=== PATIENT | male | born 1955 | race Caucasian/White ===

== ENCOUNTER → 2017-01-18 | Outpatient (CLI) | payer OTHER ==
[2017-01-18 08:53] LABS: microscopic required? NO
[2017-01-18 09:09] LABS: UA SPECIFIC GRAVITY 1.015 (1.005-1.035); urine erythrocyte NEGATIVE (NEGATIVE)
[2017-01-18 09:11] LABS: BASOPHIL % 0.6 % (0-2); PLATELET COUNT 259 x10^3mcL (130-400); RED CELL DISTRIBUTION WIDTH 14.5 % (11.5-14.5)
[2017-01-18 09:37] LABS: T3 TOTAL 1.29 ng/mL
[2017-01-18 09:39] LABS: FREE T4 0.83 ng/dL (0.76-1.46); FREE THYROXINE INDEX 2.5 ug/dL (1.4-4.5)
[2017-01-18 09:51] LABS: ALBUMIN 3.5 g/dL (3.4-5.0); ALKALINE PHOSPHATASE 86 U/L (46-116); ALT/SGPT 76 U/L (16-63); AST/SGOT 36 U/L (15-37); BILIRUBIN DIRECT 0.14 mg/dL (0.0-0.2); BILIRUBIN TOTAL 0.4 mg/dL (0.20-1.00); CALCIUM 8.7 mg/dL (8.5-10.1); CARBON DIOXIDE 27.2 mmol/L (21-32); CHLORIDE SERUM 106 mmol/L (98-107); CHOLESTEROL 149 mg/dL (<200); CREATININE SERUM 1.2 mg/dL (0.7-1.3); GFR1 > 60 mL/min; GLUCOSE SERUM 113 mg/dL (74-106); POTASSIUM SERUM 3.6 mmol/L (3.5-5.1); SODIUM SERUM 144 mmol/L (136-145); TOTAL PROTEIN, SERUM 6.9 g/dL (6.4-8.2)
[2017-01-19 09:18] LABS: ESTRADIOL 8.5 pg/mL (7.6-42.6)
== END | disposition home or self-care (01) ==
LOC: LB 08:36
PROVIDERS: Family Medicine
DX: E88.9 Metabolic disorder, unspecified (principal); N46.01 Organic azoospermia; Z11.3 Encounter for screening for infections with a predominantly sexual mode of transmission
CPT/HCPCS: 82670; 84153; 84305; 84402; 84403; 84439

== ENCOUNTER → 2017-04-11 | Outpatient (CLI) | payer OTHER ==
[2017-04-11 09:46] LABS: microscopic required? NO
[2017-04-11 10:23] LABS: UA SPECIFIC GRAVITY 1.015 (1.005-1.035); urine erythrocyte NEGATIVE (NEGATIVE)
[2017-04-11 10:50] LABS: ALBUMIN 3.7 g/dL (3.4-5.0); ALKALINE PHOSPHATASE 80 U/L (46-116); ALT/SGPT 49 U/L (16-63); AST/SGOT 28 U/L (15-37); BILIRUBIN TOTAL 0.3 mg/dL (0.20-1.00); CALCIUM 8.8 mg/dL (8.5-10.1); CARBON DIOXIDE 28.9 mmol/L (21-32); CHLORIDE SERUM 106 mmol/L (98-107); CHOLESTEROL 147 mg/dL (<200); CHOLESTEROL/HDL RATIO 2.5; CREATININE SERUM 1.2 mg/dL (0.7-1.3); GFR1 > 60 mL/min; GLUCOSE SERUM 101 mg/dL (74-106); HDL CHOLESTEROL 60 mg/dL (40-60); POTASSIUM SERUM 3.6 mmol/L (3.5-5.1); SODIUM SERUM 139 mmol/L (136-145); TOTAL PROTEIN, SERUM 7.4 g/dL (6.4-8.2)
[2017-04-11 10:52] LABS: T3 TOTAL 1.21 ng/mL
[2017-04-11 10:56] LABS: FREE T4 0.96 ng/dL (0.76-1.46); FREE THYROXINE INDEX 3.1 ug/dL (1.4-4.5)
[2017-04-11 11:02] LABS: TRIGLYCERIDES 232 mg/dL (<150)
[2017-04-11 11:09] LABS: BASOPHIL % 0.7 % (0-2); PLATELET COUNT 273 x10^3mcL (130-400); RED CELL DISTRIBUTION WIDTH 12.2 % (11.5-14.5)
[2017-04-13 12:54] LABS: ESTRADIOL 8.7 pg/mL (7.6-42.6)
[2017-04-14 14:35] LABS: INSULIN-LIKE GROWTH FACTOR-1 128 ng/mL (49-188)
== END | disposition home or self-care (01) ==
LOC: LB 09:21
PROVIDERS: Family Medicine
DX: E88.9 Metabolic disorder, unspecified (principal); N46.01 Organic azoospermia; Z11.3 Encounter for screening for infections with a predominantly sexual mode of transmission
CPT/HCPCS: 82670; 84153; 84305; 84402; 84403; 84439

== ENCOUNTER 2017-05-14 17:20 | Emergency (ER) | payer OTHER ==
[~2017-05-14] VITALS: Ht 175.3 cm; Wt 97.1 kg
[2017-05-14 17:50] LABS: BASOPHIL % 0.4 % (0-2); PLATELET COUNT 286 x10^3mcL (130-400); RED CELL DISTRIBUTION WIDTH 12.1 % (11.5-14.5)
[2017-05-14 17:55] LABS: CALCIUM 9.1 mg/dL (8.5-10.1); CARBON DIOXIDE 29.1 mmol/L (21-32); CHLORIDE SERUM 104 mmol/L (98-107); CREATININE SERUM 1.2 mg/dL (0.7-1.3); GFR1 > 60 mL/min; GLUCOSE SERUM 89 mg/dL (74-106); POTASSIUM SERUM 3.6 mmol/L (3.5-5.1); SODIUM SERUM 140 mmol/L (136-145)
[2017-05-14 17:59] LABS: ALBUMIN 3.9 g/dL (3.4-5.0); ALKALINE PHOSPHATASE 69 U/L (46-116); ALT/SGPT 30 U/L (16-63); AST/SGOT 18 U/L (15-37); BILIRUBIN TOTAL 0.4 mg/dL (0.20-1.00); CHOLESTEROL 131 mg/dL (<200); HDL CHOLESTEROL 49 mg/dL (40-60); PHOSPHOROUS 4.2 mg/dL (2.5-4.9); TOTAL PROTEIN, SERUM 7.5 g/dL (6.4-8.2); URIC ACID 6.8 mg/dL (3.5-7.2)
[2017-05-14 18:38] VITALS: BP 148/91
== END 2017-05-14 18:38 | disposition home or self-care (01) ==
LOC: ED 17:20
PROVIDERS: Emergency Medicine
DX: R07.89 Other chest pain (principal); I10 Essential (primary) hypertension; Z79.899 Other long term (current) drug therapy; Z91.013 Allergy to seafood
CPT/HCPCS: 36415; 83880; Q0092

== ENCOUNTER → 2017-06-03 | Outpatient (CLI) | payer OTHER ==
[2017-06-06 07:49] LABS: ALBUMIN 3.6 g/dL (3.4-5.0); ALKALINE PHOSPHATASE 50 U/L (46-116); ALT/SGPT 38 U/L (16-63); AST/SGOT 35 U/L (15-37); BASOPHIL % 0.4 % (0-2); BILIRUBIN TOTAL 0.54 mg/dL (0.20-1.00); CALCIUM 9.2 mg/dL (8.5-10.1); CARBON DIOXIDE 28.5 mmol/L (21-32); CHLORIDE SERUM 102 mmol/L (98-107); CREATININE SERUM 1.1 mg/dL (0.7-1.3); GFR1 > 60 mL/min; GLUCOSE SERUM 103 mg/dL (74-106); PLATELET COUNT 226 x10^3mcL (130-400); POTASSIUM SERUM 3.3 mmol/L (3.5-5.1); RED CELL DISTRIBUTION WIDTH 12.6 % (11.5-14.5); SODIUM SERUM 139 mmol/L (136-145); TOTAL PROTEIN, SERUM 7.3 g/dL (6.4-8.2)
== END | disposition home or self-care (01) ==
LOC: LB 06:09
PROVIDERS: Family Medicine Geriatric Medicine
DX: E88.9 Metabolic disorder, unspecified (principal); N46.01 Organic azoospermia; Z11.3 Encounter for screening for infections with a predominantly sexual mode of transmission
CPT/HCPCS: 82670; 84402; 84403